=== PATIENT | male | born 1995 | race Caucasian/White ===

== ENCOUNTER 2024-12-18 11:11 | Emergency (ER) | payer MEDICAID, SELFPAY ==
[2024-12-18 11:24] VITALS: BP 125/82; PULSE 107; TEMP 36.8; O2SAT 97; BMI 41.3
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
[2024-12-18] MEDS: ACETAMINOPHEN 500 MG TABLET 1000 MG PO (13:12)
== END 2024-12-18 13:40 | disposition home or self-care (01) ==
PROVIDERS: Emergency Provider Emergency Medicine; PCP Family Medicine
DX: S13.4XXA Sprain of ligaments of cervical spine, initial encounter (principal); S09.90XA Unspecified injury of head, initial encounter; V49.9XXA Car occupant (driver) (passenger) injured in unspecified traffic accident, initial encounter; M25.551 Pain in right hip; R51.9 Headache, unspecified; M54.50 Low back pain, unspecified
CPT/HCPCS: 70450; 72100; 72125; 73503; 99284; A9270